=== PATIENT | female | born 1990 | race Caucasian/White ===

== ENCOUNTER → 2017-07-18 | Outpatient (REF) | payer OTHER ==
[2017-07-18 17:10] LABS: BASO # 0.1 10^3/uL (0.0-0.2); BASO % 0.4 % (0.0-1.0); EOS # 0.1 10^3/uL (0.0-0.50); EOS % 0.7 % (0.0-3.0); HEMATOCRIT 41.7 % (36.0-47.0); HEMOGLOBIN 13.7 g/dl (12.0-16.0); IMMATURE GRANULOCYTE % 0.5 % (0-3.0); LYMPH # 1.5 10^3/uL (1.5-6.5); LYMPH % 11.5 % (24.0-44.0); MEAN CORPUSCULAR HEMOGLOBIN 29.9 pg (27.0-33.0); MEAN CORPUSCULAR HGB CONC 32.9 g/dl (32.0-36.5); MONO # 0.4 10^3/uL (0.0-0.8); MONO % 3.4 % (0.0-5.0); NEUTROPHILS # 10.9 10^3/uL (1.8-7.7); NEUTROPHILS % 83.5 % (36.0-66.0); PLATELET COUNT, AUTOMATED 240 10^3/uL (150-450); RED BLOOD COUNT 4.58 10^6/uL (4.00-5.40); RED CELL DISTRIBUTION WIDTH 12.5 % (11.5-14.5); WHITE BLOOD COUNT 13.1 10^3/uL (4.0-10.0)
[2017-07-18 19:10] LABS: CHLAMYDIA DNA AMPLIFICATION NEGATIVE (NEGATIVE); GC DNA AMPLIFICATION NEGATIVE (NEGATIVE)
[2017-07-20 12:04] LABS: HEPATITIS C VIRUS ABY INDEX 0.1 INDEX (<0.8)
[2017-07-20 12:04] LABS: HIV 1&2 SCREEN CENTAUR NEGATIVE (NEGATIVE)
[2017-07-20 12:10] LABS: HBsAg Prenatal NEGATIVE (NEGATIVE)
[2017-07-20 13:31] LABS: RUBELLA IgG QUALITATIVE IMMUNE (IMMUNE)
== END ==
LOC: M LABDRAWC 16:12
DX: Z34.81 Encounter for supervision of other normal pregnancy, first trimester (principal)
CPT/HCPCS: 86803

== ENCOUNTER → 2017-09-13 | Outpatient (CLI) | payer OTHER | LOC: M RAD 17:37 | DX: Z36.9 Encounter for antenatal screening, unspecified (principal); Z3A.20 20 weeks gestation of pregnancy | CPT/HCPCS: 76811 ==

== ENCOUNTER → 2017-10-04 | Outpatient (CLI) | payer OTHER | LOC: M RAD 10:13 | DX: Z34.82 Encounter for supervision of other normal pregnancy, second trimester (principal) | CPT/HCPCS: 76816 ==

== ENCOUNTER → 2017-11-07 | Outpatient (CLI) | payer OTHER ==
[2017-11-07 13:41] LABS: HEMATOCRIT 32.8 % (36.0-47.0); HEMOGLOBIN 10.8 g/dl (12.0-15.5); MEAN CORPUSCULAR HEMOGLOBIN 29.8 pg (27.0-33.0); MEAN CORPUSCULAR HGB CONC 32.9 g/dl (32.0-36.5); MEAN CORPUSCULAR VOLUME 90.4 fl (80.0-96.0); PLATELET COUNT, AUTOMATED 207 10^3/uL (150-450); RED BLOOD COUNT 3.63 10^6/uL (4.00-5.40); RED CELL DISTRIBUTION WIDTH 12.6 % (11.5-14.5); WHITE BLOOD COUNT 8.5 10^3/uL (4.0-10.0)
[2017-11-07 13:58] LABS: GLUCOSE CHALLENGE TEST 1 HOUR 148 MG/DL (LESS THAN 140)
== END ==
LOC: M SMT 10:08
DX: Z34.82 Encounter for supervision of other normal pregnancy, second trimester (principal)
CPT/HCPCS: 82950

== ENCOUNTER → 2017-11-28 | Outpatient (CLI) | payer OTHER ==
[2017-11-28 08:15] LABS: GLUCOSE, FASTING 88 MG/DL (LESS THAN 95)
[2017-11-28 09:01] LABS: 1 HR GLUCOSE 213 MG/DL (LESS THAN 180)
[2017-11-28 10:34] LABS: 2 HR GLUCOSE 127 MG/DL (LESS THAN 155)
[2017-11-28 11:39] LABS: 3 HR GLUCOSE 36 MG/DL (LESS THAN 140)
== END ==
LOC: M LAB 07:17
DX: Z34.83 Encounter for supervision of other normal pregnancy, third trimester (principal); Z3A.00 Weeks of gestation of pregnancy not specified
CPT/HCPCS: 82951

== ENCOUNTER 2017-12-07 14:49 | Emergency (ER) | payer OTHER | END 2017-12-07 18:37 | disposition home or self-care (01) | LOC: M ED 14:49 | DX: O22.03 Varicose veins of lower extremity in pregnancy, third trimester (principal); O99.343 Other mental disorders complicating pregnancy, third trimester; F31.9 Bipolar disorder, unspecified; Z3A.34 34 weeks gestation of pregnancy | CPT/HCPCS: 93971 ==

== ENCOUNTER 2018-01-25 00:10 | Inpatient (IN) | payer OTHER ==
[2018-01-25 01:15] LABS: HEMATOCRIT 34.8 % (36.0-47.0); MEAN CORPUSCULAR HEMOGLOBIN 26.2 pg (27.0-33.0); MEAN CORPUSCULAR HGB CONC 31.6 g/dl (32.0-36.5); MEAN CORPUSCULAR VOLUME 82.9 fl (80.0-96.0); PLATELET COUNT, AUTOMATED 195 10^3/uL (150-450); RED CELL DISTRIBUTION WIDTH 13.8 % (11.5-14.5); WHITE BLOOD COUNT 14.8 10^3/uL (4.0-10.0)
[2018-01-25] MEDS ORDERED: FENTANYL 2MCG/ML ROPIVACAINE 0.2% IN 0.9% NACL 200ML IVBAG As Ordered (02:01)
[2018-01-25] MEDS ORDERED: EPIDURAL COMMENT XX (03:00)
[2018-01-25] MEDS ORDERED: NALOXONE INJ 0.4 MG/1 ML VIAL (J2310) IV (03:00)
[2018-01-25] MEDS ORDERED: ONDANSETRON 4MG/2ML VIAL (J2405) IV (03:00)
[2018-01-25] MEDS ORDERED: ePHEDrine SULFATE 25 MG/5 ML(5MG/ML) SYRINGE IV (03:00)
[2018-01-25] MEDS ORDERED: FENTANYL/ROPIVACAINE/NACL BAG 200 ML EPIDURAL (03:00)
[2018-01-25] MEDS ORDERED: REFRIGERATOR IV KEYS XX (03:00)
[2018-01-25] MEDS ORDERED: EPIDURAL/PCA KEYS XX (03:00)
[2018-01-25] MEDS ORDERED: diphenhydrAMINE INJ 50MG/ML VIAL (J1200) IV (03:00)
[2018-01-25] MEDS: LACTATED RINGER'S 1000 ML IV ×2 (03:49)
[2018-01-25] MEDS: LR 1,000 ML IV (03:49)
[2018-01-25] MEDS ORDERED: OXYTOCIN 30 UNITS IN 0.9% NaCl 500ML IV BAG (J2590) As Ordered (05:54)
[2018-01-25] MEDS ORDERED: METHYLERGONOVINE MALEATE 0.2 MG TAB PO (07:00)
[2018-01-25] MEDS ORDERED: ANUSOL HC CREAM 30GM TOP (07:00)
[2018-01-25] MEDS ORDERED: MEASLES,MUMPS,RUBELLA VACCINE INJ (MMR-II) (90707) SC (07:00)
[2018-01-25] MEDS: METHYLERGONOVINE MALEATE 0.2 MG/ML VIAL (J2210) IM (07:00)
[2018-01-25] MEDS ORDERED: RHOGAM 300 MCG (1500 IU) INJ (J2790) IM (07:00)
[2018-01-25] MEDS: OXYTOCIN DRIP 30 UNITS in APPROPRIATE DILUENT 1 EA IV (07:35)
[2018-01-25] MEDS: OXYTOCIN INJ 10 UNITS/ML VIAL (J2590) IV (07:40)
[2018-01-25] MEDS: diphenhydrAMINE 25 MG CAP PO (08:31)
[2018-01-25] MEDS: PRENATAL VITAMINS CHEWABLE TABLET PO (08:31)
[2018-01-25] MEDS: ACETAMINOPHEN 500 MG TAB PO ×2 (09:05→20:02)
[2018-01-25] MEDS: IBUPROFEN 800 MG TAB PO (14:07)
[2018-01-25] MEDS: DOCUSATE SODIUM 100 MG CAP PO (15:26)
[2018-01-26] MEDS: IBUPROFEN 800 MG TAB PO ×2 (03:25→20:04)
[2018-01-26] MEDS: PRENATAL VITAMINS CHEWABLE TABLET PO (08:14)
[2018-01-26] MEDS: DIBUCAINE 1% OINTMENT 30GM TOP (08:14)
[2018-01-26] MEDS: ACETAMINOPHEN 500 MG TAB PO ×2 (08:16→21:31)
[2018-01-27] MEDS: PRENATAL VITAMINS CHEWABLE TABLET PO (09:26)
[2018-01-27] MEDS: IBUPROFEN 800 MG TAB PO (09:28)
[2018-01-27] MEDS: ACETAMINOPHEN 500 MG TAB PO (11:59)
== END 2018-01-27 14:15 | disposition home or self-care (01) | DRG 560 ==
LOC: M LDO 00:10 → M LDI 00:38 → M OBS 11:09
PROVIDERS: Advanced Practice Midwife
PROC: 10E0XZZ Delivery of Products of Conception, External Approach (ICD-10-PCS; principal; 2018-01-25)
DX: O34.211 Maternal care for low transverse scar from previous cesarean delivery (principal); Z37.0 Single live birth; Z3A.39 39 weeks gestation of pregnancy